=== PATIENT | female | born 1960 | race Caucasian/White ===

== ENCOUNTER → 2020-06-01 | Outpatient (CLI) | payer OTHER ==
--- NOTE | 2020-06-05 00:10 | ECWPNPC ---
PATIENT NAME: AVERY CROFT : 1960 GENDER: FEMALE VISIT DATE: 06/01/2020 DISCHARGE DATE: 06/01/20 0000 VISIT LOCKED DATE TIME: PHYSICIAN: ALISIA CAZARES RESOURCE: ALISIA CAZARES REASON FOR APPOINTMENT 1. NECK ,BACK HISTORY OF PRESENT ILLNESS DEPRESSION SCREENING: PHQ-2 (2015 EDITION) LITTLE INTEREST OR PLEASURE IN DOING THINGS?NOT AT ALL FEELING DOWN, DEPRESSED, OR HOPELESS?NOT AT ALL TOTAL SCORE0 GENERAL: 59-YEAR-OLD FEMALE REFERRED BY [facility] TO EVALUATE FOR CHRONIC GENERALIZED BACK PAIN. PATIENT REPORTS A LONG HISTORY OF GENERALIZED BACK PAIN. WAS ATTENDING PAIN MANAGEMENT IN [place] LAST YEAR BUT STATES SHE HAD A FEW INJECTIONS AND THEY DIDN'T HELP. CURRENTLY RECEIVING TYLENOL WITH CODEINE WHICH SHE FINDS HELPFUL. 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 REPORTS PAIN IN BOTH LOWER EXTREMITIES LEFT GREATER THAN RIGHT. PAIN IS AGGRAVATED BY PROLONGED STANDING OR BENDING. PAIN IS RELIEVED SOMEWHAT WITH OCCASIONAL USE OF TYLENOL WITH CODEINE. DISCUSSED MEDICATION AND TREATMENT OPTIONS AVAILABLE. DENIES BOWEL OR BLADDER INCONTINENCE. DENIES SUDDEN WEIGHT LOSS. DENIES SADDLE PARESTHESIAS. - - -. FALL RISK SCREENING: SCREENING :NO FALLS REPORTED IN THE LAST YEAR PAIN SCREENING: PATIENT HAS A COMPLAINT OF ACUTE OR CHRONIC PAIN :YES LOCATION OF PAIN:NECK, LOW BACK INTENSITY OF PAIN (SCALE OF 1 TO 10):8 WHAT DOES YOUR PAIN FEEL LIKE:SORE DURATION:CONTINOUS, CONSTANT, ALL DAY PAIN IS INCREASED BY:ACTIVITIES PAIN IS DECREASED BY:USE OF PAIN MEDICATIONS NURSING NOTE: - - -. PAIN CENTER INTAKE QUESTIONS: DO YOU HAVE A HISTORY OF MRSA? :NO DO YOU TAKE A BLOOD THINNERS? :NO DO YOU HAVE ANY BLEEDING DISORDERS? :NO ANY NEW NUMBNESS OR WEAKNESS IN YOUR LEGS OR ARMS? :NO ANY PACEMAKER,DEFIBRILLATOR, OR DORSAL COLUMN STIMULATOR? :NO DO YOU HAVE ANY RASHES OR OPEN SORES? :NO ARE YOU ALLERGIC TO IV DYE? :NO ARE YOU DIABETIC? :NO ANY NEW PROBLEMS WITH YOUR MEDICATIONS? :NO HAVE YOU RECEIVED A VACCINE IN THE PAST 30 DAYS? :YES COVID 1ST DO YOU PLAN TO RECEIVE A VACCINE IN THE NEXT 21 DAYS? :YES IF SO WHAT VACCINE AND WHEN? 2ND COVID DO YOU NEED ANY PRESCRIPTION? :NO DO YOU TAKE ANY IMMUNOSUPPRESSIVE MEDICATIONS? :NO CURRENT MEDICATIONS TAKING TYLENOL WITH CODEINE #3 300-30MG 1-2 TABLETS ORALLY DAILY NEEDED TAKING DULOXETINE HCL 60 MG CAPSULE DELAYED RELEASE SPRINKLE 1 CAPSULE ORALLY ONCE A DAY TAKING CALCIUM + D3 600-800 MG-UNIT TABLET 1 TABLET WITH A MEAL ORALLY ONCE A DAY TAKING HYDROXYZINE HCL 50 MG TABLET 1 TABLET NEEDED ORALLY BID NEEDED TAKING BUPROPION HCL ER (XL) 300 MG TABLET EXTENDED RELEASE 24 HOUR 1 TABLET IN THE MORNING ORALLY ONCE A DAY TAKING MULTIVITAMIN - TABLET 1 TABLET ORALLY ONCE A DAY TAKING POLYMYXIN B-TRIMETHOPRIM 25758-3.1 UNIT/ML SOLUTION 1 DROP INTO AFFECTED EYE OPHTHALMIC FOUR TIMES A DAY MEDICATION LIST REVIEWED AND RECONCILED WITH THE PATIENT PAST MEDICAL HISTORY UNILATERAL PRIMARY OSTEOARTHRITIS, RIGHT AND LEFT KNEE MIXED HYPERLIPIDEMIA 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 SURGICAL HISTORY LAPAROSCOPIC CHOLECYSTECTOMY 07/27/07 LEFT BREAST BIOPSY- BENIGN HEMORROIDECTOMY LAPAROSCOPIC GASTRIC BYPASS 07/27/07 FAMILY HISTORY FATHER: MOTHER: DAUGHTER(S): ALIVE 1 SON(S) - HEALTHY. FATHER-OBESITY, MOTHER-COPD, SISTER-CIRRHOSIS. SOCIAL HISTORY GENERAL: TOBACCO USE ARE YOU A:CURRENT SMOKER HOW MANY CIGARETTES A DAY DO YOU SMOKE?5 OR LESS 1/2 PACK PER DAY LATEX QUESTIONNAIRE LATEX ALLERGY : HAVE YOU EVER DEVELOPED ANY TYPE OF REACTION AFTER HANDLING LATEX PRODUCTS SUCH RUBBER GLOVES, CONDOMS, DIAPHRAGMS, BALLOONS, SOCKS, OR UNDERWEAR?NO LATEX ALLERGY : HAVE YOU EVER DEVELOPED ANY TYPE OF REACTION DURING OR AFTER DENTAL APPOINTMENT, VAGINAL/RECTAL EXAMINATION, SURGICAL PROCEDURE, OR ANY OTHER EXPOSURE?NO LATEX RISK : HAVE YOU EVER HAD ANY DIFFICULTY BREATHING OR HIVES AFTER EATING OR HANDLING ANY FRUITS, OR VEGETABLES; SUCH KIWI, BANANAS, STONE FRUITS, OR CHESTNUTSNO LATEX RISK : DO YOU HAVE A PREVIOUS PERSONAL HISTORY OF MORE THAN NINE SURGERIES, SPINA BIFIDA, OR REPEATED CATHERIZATIONS? NO LATEX RISK : ARE YOU FREQUENTLY EXPOSED TO LATEX PRODUCTS IN YOUR OCCUPATION?NO DATE ASKED : 06/01/2020 ALCOHOL USE: NO. 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 MARITAL STATUS: .. HOSPITALIZATION/MAJOR DIAGNOSTIC PROCEDURE SURGERIES REVIEW OF SYSTEMS CONSTITUTIONAL: ANY RECENT FEVER NO . CHILLS NO . WEIGHT CHANGE OF UNKNOWN REASONS NO . GASTROENTEROLOGY: NEW UNEXPLAINABLE CHANGES IN BOWEL CONTROL NO . CONSTIPATION NO . GENITOURINARY: ANY NEW CHANGE IN BLADDER CONTROL? NO . NEUROLOGY: NEW ONSET DIZZINESS OR NEUROLOGICAL CHANGES NOT MENTIONED NO . NEW NUMBNESS OR PAIN PATTERNS NOT MENTIONED AND PERTINENT TO TODAY'S VISIT NO . CARDIOLOGY: NEW CHEST PRESSURE NO . NEW CHEST PAIN NO . RESPIRATORY: UNEXPLAINABLE COUGH NO . NEW SHORTNESS OF BREATH NO . VITAL SIGNS WT 161 LBS, HT 5'3, BMI 31.44 INDEX, BP 134/70 MM HG, HR 69 /MIN, RR 18 /MIN, TEMP 97.1 F, OXYGEN SAT % 97, SAFE IN ENV? (Y/N) YEST.KARLOS DAWSON. EXAMINATION GENERAL EXAMINATION: GENERALNO ACUTE DISTRESS, WELL NOURISHED AND HYDRATED. PSYCHAPPROPRIATE MOOD AND AFFECT . NECK:NO LYMPHADENOPATHY, SUPPLE, NO THYROMEGALLY. LUNGS:CLEAR TO AUSCULTATION BILATERALLY, NO WHEEZES, RHONCHI, RALES. HEART:NO MURMURS, REGULAR RATE AND RHYTHM. MUSCULOSKELETAL:NORMAL RANGE OF MOTION. LUMBAR: MUSCLE STRENGTH TESTING 5/5 BILATERAL UPPER AND LOWER EXTREMITIES. NEUROLOGIC EXAM:NORMAL SENSATION TO LIGHT TOUCH LOWER EXTREMITIES . ASSESSMENTS ARTHROPATHY - M12.9 (PRIMARY) TREATMENT ARTHROPATHY START TIZANIDINE HCL TABLET, 2 MG, 1 TABLET NEEDED, ORALLY, Q8H PRN FOR SEVERE PAIN MDD3, 30 DAYS, 45, REFILLS 1 NOTES: INSTRUCTED TO USE TIZANIDINE 2 MG TABLET 1 IF NECESSARY FOR SEVERE PAIN EPISODES. REFERRAL WILL BE MADE TO PALLIATIVE CARE TO EVALUATE FOR MEDICAL MARIJUANA. TODAY MRI OF CERVICAL AND LUMBAR SPINE IS REQUESTED FROM [facility]. PATIENT WILL RETURN TO CLINIC IN 2 MONTHS TO REVIEW MRI AND DISCUSS TREATMENT PLAN. REFERRAL TO:[facility] REASON:PLEASE EVALUATE FOR MEDICAL MARIJUANA FOR GENERALIZED ARTHROPATHY OTHERS NOTES: TIZANIDINE MATERIAL WAS PRINTED, REVIEWED AND GIVEN TO PATIENT. Geeta JOHNSON PLASTIC MACHINE OPERATOR. PROCEDURE CODES FA211 ESTABILISHED PATIENT [facility] CHARGE DISPOSITION & COMMUNICATION FOLLOW UP 2 MONTHS (REASON: FOLLOW-UP AFTER INITIAL CONSULT, REVIEW MRI REQUESTED FROM [facility], FOLLOW-UP ON PALLIATIVE CARE FOR MEDICAL MARIJUANA, FOLLOW-UP ON TIZANIDINE) ELECTRONICALLY SIGNED BY JOSE TONEY ON 06/04/2020 AT 12:30 PM EST DISCLAIMER : THIS IS A VISIT SUMMARY EXTRACTED FROM THE [employer] CHART. IT IS NOT A COPY OF THE [employer] PROGRESS NOTE. SARAH
== END ==
LOC: M PAIN 13:00
PROVIDERS: ATTEND Nurse Practitioner Family
DX: M12.9 Arthropathy, unspecified (principal); G89.29 Other chronic pain; G25.81 Restless legs syndrome; F17.210 Nicotine dependence, cigarettes, uncomplicated; Z79.899 Other long term (current) drug therapy